=== PATIENT | male | born 1960 | race Caucasian/White ===

== ENCOUNTER → 2017-02-28 | Outpatient (CLI) | payer OTHER ==
[~2017-02-28] MED LIST: ANEXSIA 5/325 M1 TA1 PO; ASPIRIN81 M2 PO; BUTALBITAL-ASP-1 CA1 PO; CALCIUM 500 +1 EAC2 PO; COZAAR100 MG PO; DAYPRO600 M1 PO; GABAPENTIN300 MG PO; IMDUR-ER30 M2 PO; MELOXICAM15 MG PO; PRILOSEC20 M1 PO; RANEXA500 MG PO; RISPERDAL2 MG PO; SUMATRIPTAN SU100 MG PO; TYLENOL #3 PO; ZOCOR20 MG PO
--- NOTE | ~2017-02-28 | MR113 ---
[facility] A Service of [facility] & [facility] RADIOLOGY TEXT RESULTS PATIENT: CORY GARCIA LOCATION: [facility] : 56 UNIT #: [id number] AGE: [address]: YULIANA SCANLON PA-C SEX: M ORDER DR: [id number] [address] [address] [id number] O MR#: [id number] Acc #: [id number] NAME: CORY GARCIA : 1960 SEX: M STUDY DATE/TIME: 02/28/2017 15:01 UNIT: [facility] ROOM: STUDY DESCRIPTION: MR Lumbar Wo Contrast Attending Physician: Yuliana Scanlon Pa-C Referring Physician: Yuliana Scanlon Pa-C Ordering Physician: Verenice Frod Primary Care Physician: Yuliana Scanlon Pa-C MRI CENTER REPORT This report is preliminary unless electronic signature is present. EXAM MRI of the lumbar spine without contrast dated 02/28/2017 COMPARISON None HISTORY Low back pain for 5 years TECHNIQUE Multisequence multiplanar imaging of the lumbar spine was obtained without contrast. FINDINGS Vertebral body height is decreased in the mid aspect of L5 likely related to old fracture or a cleft. Minimal edema if any is noted along the posterior aspect of the L5 vertebral body. Degenerative disc disease is at multiple levels of the visualized thoracolumbar spine. Conus terminates at the inferior T12 close to T12-L1. Signal of conus and cauda equina do not demonstrate any obvious abnormality. There are fatty signal marrow changes in the bones. It is relatively better defined in right lateral aspect of L2, right lateral aspect of L3 close to the pedicle, right lateral aspect of S1 close to S1-2 segment, right lateral aspect of T12. Of these lesions, the relatively larger one is noted in the S1 segment measuring about 1.5 cm in greatest length. Mild edematous changes are associated with S1, T12, and 2 lesions. There is another smaller area of edema noted along the posterior and inferior aspect of L4, which is probably a similar lesion, not as well defined on T1-1 signal. These have nonaggressive appearance. No extraosseous extension or pathological associated fractures are seen. Pre and paravertebral soft tissues do not demonstrate any significant abnormality. T12-L1: Disc osteophyte complex with superimposed serxi-oz-uxld central STS. [facility] A Service of [facility] & [facility] RADIOLOGY TEXT RESULTS PATIENT: CORY GARCIA LOCATION: [facility] : 56 UNIT #: [id number] AGE: [address]: YULIANA SCANLON PA-C SEX: M ORDER DR: moderate protrusion with an extruded component in the center extending slightly above and below the disc level. There is mild canal stenosis with mild inferior bilateral neural foraminal encroachment. L1-L2: Concentric disc bulge with superimposed [id number] subarticular moderate broad-based protrusion with suspicious central extruded component migrating inferiorly. Moderate canal stenosis is noted with minimal bilateral facet change. Mild inferior bilateral neural foraminal narrowing. L2-L3: Concentric disc bulge with negi-ko-fqbmlhub canal stenosis and mild inferior bilateral neural foraminal narrowing. L3-4: Moderate concentric disc bulge with mild bilateral facet changes. Borderline size to mild canal stenosis is noted with central protrusion/spur. Mild bilateral facet changes are seen with mild bilateral neural foraminal narrowing. L4-5: Concentric disc bulge is seen with mild bilateral facet changes. Mild inferior bilateral neural foraminal narrowing is seen with borderline size to mild canal stenosis. L5-S1: Concentric disc bulge with mild left facet hypertrophic change and mild inferior left neural foraminal narrowing. No canal stenosis. IMPRESSION 1. There is a compression deformity in the mid aspect of L5 vertebral body with minimal edema, if any, along its posterior aspect. It is probably a predominantly chronic compression injury with the fracture line noted in the axial images. Correlate with history. 2. Degenerative changes are noted at multiple levels, relatively worse at T2-L1 and L1-2 with suspicious central protrusion superimposed on protrusions as described above. 3. Canal stenosis is seen from T12-1 to L3-4 levels. 4. There are edematous bony lesions in the thoracolumbar spine and S1 segment which has fatty signal characteristics on T1. These are probably nonaggressive benign lesions like atypical hemangioma based on statistics. No associated pathological fracture or extraosseous soft tissue components are seen. Dictated by... Joyce Guzman M.D. THIS IS AN ELECTRONICALLY VERIFIED REPORT Joyce Guzman M.D. at 03/01/2017 3:43 PM CPR/to TD: 03/01/2017 15:27 [facility] A Service of [facility] RADIOLOGY TEXT RESULTS PATIENT: CORY GARCIA LOCATION: [facility] : 56 UNIT #: [id number] AGE: [address]: YULIANA SCANLON PA-C SEX: M ORDER DR: JOB #: [id number] MRI CENTER REPORT Page 1 of 1
== END | disposition home or self-care (01) ==
LOC: SMRI 14:54
DX: M51.36 Other intervertebral disc degeneration, lumbar region (principal); M47.896 Other spondylosis, lumbar region; M48.06 Spinal stenosis, lumbar region
CPT/HCPCS: 72148